=== PATIENT | male | born 1990 | race African-American/Black ===

== ENCOUNTER 2017-06-26 14:30 | Emergency (ER) | payer SELFPAY ==
[~2017-06-26] VITALS: Ht 180.3 cm; Wt 99.8 kg
--- NOTE | 2017-06-26 14:46 | NUR ---
26 YEARS OLD MALE BIBA C/O LOWER BACK PAIN AFTER MECHANICAL FALL AT [employer], GAIT STEADY AMBULATORY AT THE SCENE.
[2017-06-26] MEDS ORDERED: IBUPROFEN 800 MG TABLET PO ONE (15:00)
--- NOTE | 2017-06-26 15:11 | NUR ---
PT AMBULATORY WITH STEADY GAIT, ICEPACK GIVEN D/C HOME WITH PRESCRIPTION AFTER CARE REVIEWED UNDERSTOOD LEFT ER VIA SELF ALERT, ORIENTED X4.
[2017-06-26] MEDS ORDERED: IBUPROFEN 800 MG TABLET ONE (15:12)
[2017-06-26 15:13] VITALS: BP 128/70
== END 2017-06-26 15:19 | disposition home or self-care (01) ==
LOC: ER 14:31
DX: S39.92XA Unspecified injury of lower back, initial encounter (principal); W01.0XXA Fall on same level from slipping, tripping and stumbling without subsequent striking against object, initial encounter; Y93.89 Activity, other specified; Y92.89 Other specified places as the place of occurrence of the external cause; Y99.8 Other external cause status
CPT/HCPCS: A4663